=== PATIENT | female | born 1990 | race Caucasian/White ===

== ENCOUNTER 2019-06-02 08:57 | Inpatient (IN) | payer OTHER ==
[2019-06-02 09:52] LABS: ABSOLUTE EOSINOPHILS # (AUTO) 0.1 10^3/uL (0.0-0.6); ABSOLUTE LYMPHOCYTES (AUTO) 1.4 10^3/uL (0.5-4.7); ABSOLUTE MONOCYTES (AUTO) 0.7 10^3/uL (0.1-1.4); ABSOLUTE NEUT (AUTO) 5.2 10^3/uL (1.7-8.2); BASOPHILS % (AUTO) 0.1 % (0-2); HEMOGLOBIN 12.6 g/dL (12.0-15.5); LYMPHOCYTES % (AUTO) 19.1 % (13-45); MEAN CORPUSCULAR HEMOGLOBIN 30.2 pg (27.0-33.4); MEAN CORPUSCULAR VOLUME 86 fl (80-97); MONOCYTES % (AUTO) 8.9 % (3-13); PLATELET COUNT 154 10^3/uL (150-450); RED BLOOD COUNT 4.17 10^6/uL (3.72-5.28); RED CELL DISTRIBUTION WIDTH 14.4 % (11.5-14.0); SEGMENTED NEUTROPHILS % (AUTO) 70.9 % (42-78); TOTAL CELLS COUNTED % (AUTO) 100 %; WHITE BLOOD COUNT 7.3 10^3/uL (4.0-10.5)
[2019-06-02 09:52] LABS: APPEARANCE,URINE CLEAR; BILIRUBIN,URINE NEGATIVE (NEGATIVE); COLOR,URINE STRAW; GLUCOSE, URINE NEGATIVE (NEGATIVE); KETONES,URINE NEGATIVE (NEGATIVE); LEUKOCYTE ESTERASE,URINE TRACE (NEGATIVE); NITRITE,URINE NEGATIVE (NEGATIVE); PROTEIN,URINE NEGATIVE (NEGATIVE); URINE SPECIFIC GRAVITY 1.002; UROBILINOGEN,URINE NEGATIVE mg/dL (<2.0)
[2019-06-02 09:59] LABS: URINE AMPHETAMINES SCREEN NEGATIVE; URINE BARBITURATES SCREEN NEGATIVE; URINE BENZODIAZEPINES SCREEN NEGATIVE; URINE COCAINE SCREEN NEGATIVE; URINE MARIJUANA (THC) SCREEN NEGATIVE; URINE METHADONE SCREEN NEGATIVE; URINE PHENCYCLIDINE SCREEN NEGATIVE
[2019-06-02 10:13] LABS: ALBUMIN 3.4 g/dL (3.5-5.0); ALKALINE PHOSPHATASE 116 U/L (38-126); ANION GAP 6 (5-19); ASPARTATE AMINO TRANSFERASE 21 U/L (14-36); BILIRUBIN,TOTAL 0.3 mg/dL (0.2-1.3); BLOOD UREA NITROGEN 7 mg/dL (7-20); CALCIUM 9.3 mg/dL (8.4-10.2); CARBON DIOXIDE 21 mmol/L (22-30); CHLORIDE 109 mmol/L (98-107); GLUCOSE 81 mg/dL (75-110); POTASSIUM 3.8 mmol/L (3.6-5.0); TOTAL PROTEIN 6.2 g/dL (6.3-8.2)
[2019-06-02 10:15] LABS: UR PRO/CREAT RATIO RESULT 1.2 mg/mg (0.0-0.2); URINE CREATININE 13.5 mg/dL (16-327); URINE PROTEIN 15.9 mg/dL (<12)
--- NOTE | 2019-06-02 10:29 | Non Stress Test Report ---
Non Stress Test Datetime Report Generated by CPN: 06/02/2019 10:29 INDICATION Indication for Study (NST) Other: PIH workup VITAL SIGNS Temperature - NST: 98.1 Pulse - NST: 88 RESP - NST: 18 NBPSYS NST: 135 NBPDIA NST: 76 MONITORING Monitor Explained: Monitor Explained; Test Explained; Patient Verbalized Understanding Time on Monitor: 06/02/2019 09:16 Time off Monitor: 06/02/2019 10:28 NST Duration: 72 NST INTERVENTIONS NST Interventions: PO Hydration Physician Notified NST: Tigist Casarez CNM BABY A: [id number] Movement : Present Contraction Frequency : none FHR Baseline : 145 Accelerations : 15X15 Decelerations : None Variability : Moderate 6-25bpm NST Review: Meets Criteria for Reactive NST NST Review and Verified By : Joann Florez RN NST Results: Reactive NST REPORT Report Trigger: Send Report
[2019-06-02] MEDS ORDERED: DINOPROSTONE 10 MG VAGINAL INSERT.SR ONE (10:59)
[2019-06-02] MEDS ORDERED: MISOPROSTOL 0.2 MG TABLET ONE (10:59)
[2019-06-02] MEDS ORDERED: LIDOCAINE 1% INJ-PF (10 MG/ML) 30 ML SDV ONE (10:59)
[2019-06-02] MEDS ORDERED: OXYTOCIN/NORMAL SALINE 20 UNIT/1,000 ML RTUINJ ONE (10:59)
[2019-06-02] MEDS ORDERED: OXYTOCIN 10 UNIT/ML VIAL ONE (10:59)
[2019-06-02] MEDS ORDERED: DINOPROSTONE 10 MG VAGINAL INSERT.SR PV ONE (11:13)
[2019-06-02] MEDS ORDERED: RINGERS SOLUTION,LACTATED 1,000 ML IV PRN (11:13)
[2019-06-02] MEDS ORDERED: OXYTOCIN/NORMAL SALINE 20 UNIT/1,000 ML RTUINJ IV PRN (11:13)
[2019-06-02] MEDS ORDERED: MAG HYDROX/AL HYDROX/SIMETH SUSP 30 ML UDCUP PO PRN (11:13)
[2019-06-02] MEDS ORDERED: ZOLPIDEM TARTRATE 5 MG TABLET PO PRN (11:13)
[2019-06-02] MEDS ORDERED: RINGERS SOLUTION,LACTATED 300 ML IV ONE (11:13)
[2019-06-02] MEDS ORDERED: ACETAMINOPHEN 325 MG TABLET PO PRN (11:13)
[2019-06-02] MEDS: RINGERS SOLUTION,LACTATED 1,000 ML IV PRN ×2 (11:27→20:11)
--- NOTE | 2019-06-02 14:28 | Admission Physical ---
Datetime Report Generated by CPN: 06/02/2019 14:28 CURRENT ADMISSION Chief Complaint: Signs/Symptoms Gestational HTN; Sent from OB Office for Evaluation and Treatment - Please Specify Indication for Induction: PreEclampsia Indication for Induction- Other: Pr/Cr ratio 1.2 Admit Impression : Term, Intrauterine Admit Plan: Admit to Unit; Initiate Labor Induction Protocol Admit Plan- Other: GBS neg has Hx of White coat syndrome, vs CHTN had severe range bp in office last week BP 159/101, 150/109 at A today ALLERGIES Medication Allergies: No Medication Allergies: No Known Allergies (06/02/2019) Latex: No Latex Allergies Food Allergies: none Environmental Allergies: none OBSTETRICAL HISTORY : 1 Para: 0 Term: 0 : 0 SAB: 0 IAB: 0 Ectopic: 0 Livin Cesareans: 0 VBACs: 0 Multiple Births: 0 Gestational Diabetes: No Rh Sensitization: No Incompetent Cervix: No ANA PAULA: No Infertility: No ART Treatment: No Uterine Anomaly: No IUGR: No Hx Previous C/S: No Macrosomia: No Hx Loss/Stillborn: No PIH: Yes Hx : No Placenta Previa/Abruption: No Depression/PP Depression: No PTL/PROM: No Post Hemorrhage: No Current Procedures: Ultrasound Obstetrical History Comments: G1-current SEE RECORDS Alcohol: No Marijuana : No Cocaine: No Other Illicit Drugs: No Cigarettes: Never Smoker. 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 Heart Disease: No Hosp/Surgery: No Autoimmune Disorder: No Anesthetic Complications: No Kidney Disease: No Abnormal Pap Smear: No Neuro/Epilepsy: No Psychiatric Disorders: No Other Medical Diseases: No Hepatitis/Liver Disease: No Significant Family History: No Varicosities/Phlebitis: No Trauma/Violence : No Thyroid Dysfunction: No Medical History Comments: white coat syndrome hypertension INFECTIOUS HISTORY Gonorrhea: No Genital Herpes: No Chlamydia: No Tuberculosis: No Syphilis: No Hepatitis: No HIV/AIDS Exposure: No Rash or Viral Illness: No HPV: Yes PHYSICAL EXAM General: Normal HEENT: Deferred Neurologic: Normal Thyroid: Deferred Heart: Normal Lungs: Normal Breast: Deferred Back: Deferred Abdomen: Normal Genitourinary Exam: Normal Extremities: Normal DTRs: Abnormal Pelvic Type: Adequate Physical Exam Comments: Brisk DTRs, no clonus Vital Signs: Reviewed VAGINAL EXAM Dilatation: 2 Effacement: 60 Station: -2 MEMBRANES Membranes: Intact FETUS A Monitoring: External US Variability: Moderate 6-25bpm Accelerations: 15X15 Decelerations: None Presentation: Vertex Admit Comment: Admit for IOL for pre-E POC discussed with Dr. Riaz Jeffers induction PLANS FOR LABOR AND DELIVERY Labor and Delivery: None Pain Management: Epidural Feeding Preference: Breast Benefit of Breast Feed Discussed: Yes Circumcision: N/A INFORMED CONSENT Assignment: Chidi Mello MD Signature: with User ID: Prince : with User ID: Prince
[2019-06-03] MEDS ORDERED: DINOPROSTONE 10 MG VAGINAL INSERT.SR PV ONE (00:30)
[2019-06-03] MEDS ORDERED: DINOPROSTONE 10 MG VAGINAL INSERT.SR ONE (01:08)
[2019-06-03] MEDS: RINGERS SOLUTION,LACTATED 1,000 ML IV PRN (03:28)
[2019-06-03] MEDS ORDERED: FENTANYL/BUPIVACAINE/NS/PF 300 MCG/150 ML RTUINJ EPI ONE (15:00)
[2019-06-03] MEDS ORDERED: PHENYLEPHRINE HCL INJ/PF 10 MG/1 ML SDV ONE (15:00)
[2019-06-03] MEDS ORDERED: EPHEDRINE SULFATE INJ 50 MG/1 ML AMPULE ONE (15:00)
[2019-06-03] MEDS ORDERED: FENTANYL CITRATE INJ/PF 100 MCG/2 ML AMPUL ONE (15:00)
[2019-06-03] MEDS ORDERED: BUPIVACAINE HCL 0.25 % INJ/PF (2.5 MG/1 ML) 30 ML VIAL ONE (15:00)
[2019-06-03 15:16] LABS: ABSOLUTE EOSINOPHILS # (AUTO) 0.1 10^3/uL (0.0-0.6); ABSOLUTE LYMPHOCYTES (AUTO) 1.5 10^3/uL (0.5-4.7); ABSOLUTE MONOCYTES (AUTO) 0.9 10^3/uL (0.1-1.4); BASOPHILS % (AUTO) 0.2 % (0-2); EOSINOPHILS % (AUTO) 0.6 % (0-6); HEMATOCRIT 37.3 % (36.0-47.0); HEMOGLOBIN 13.2 g/dL (12.0-15.5); MEAN CORPUSCULAR HEMOGLOBIN 30.1 pg (27.0-33.4); MEAN CORPUSCULAR HGB CONC 35.2 g/dL (32.0-36.0); MEAN CORPUSCULAR VOLUME 86 fl (80-97); MONOCYTES % (AUTO) 10.3 % (3-13); PLATELET COUNT 168 10^3/uL (150-450); RED BLOOD COUNT 4.37 10^6/uL (3.72-5.28); RED CELL DISTRIBUTION WIDTH 14.5 % (11.5-14.0); SEGMENTED NEUTROPHILS % (AUTO) 70.9 % (42-78); TOTAL CELLS COUNTED % (AUTO) 100 %; WHITE BLOOD COUNT 8.5 10^3/uL (4.0-10.5)
[2019-06-03] MEDS ORDERED: ACETAMINOPHEN 325 MG TABLET ONE (19:56)
[2019-06-03] MEDS ORDERED: AMPICILLIN SOD/SULBACTAM 3 GM VIAL ONE (19:56)
[2019-06-03] MEDS ORDERED: ACETAMINOPHEN 325 MG TABLET PO PRN (20:15)
[2019-06-03] MEDS ORDERED: OXYTOCIN/NORMAL SALINE 20 UNIT/1,000 ML RTUINJ IV PRN (20:15)
[2019-06-03] MEDS ORDERED: BENZOCAINE/MENTHOL AEROSOL SPRAY 56 ML TOP PRN (20:15)
[2019-06-03] MEDS ORDERED: PSEUDOEPHEDRINE HCL 30 MG TABLET PO PRN (20:15)
[2019-06-03] MEDS ORDERED: MAGNESIUM HYDROXIDE SUSP 30 ML UDCUP PO PRN (20:15)
[2019-06-03] MEDS ORDERED: MEASLES,MUMPS&RUBELLA VACC/PF 0.5 ML VIAL SUBCUT PRN (20:15)
[2019-06-03] MEDS ORDERED: PROMETHAZINE HCL 25 MG TABLET PO PRN (20:15)
[2019-06-03] MEDS ORDERED: PROMETHAZINE HCL 25 MG SUPP.RECT PR PRN (20:15)
[2019-06-03] MEDS ORDERED: DIPHENHYDRAMINE HCL 25 MG CAPSULE PO PRN (20:15)
[2019-06-03] MEDS ORDERED: DIBUCAINE 1% OINTMENT 28 GM TP PRN (20:15)
[2019-06-03] MEDS ORDERED: ACETAMINOPHEN 650 MG SUPP.RECT PR PRN (20:15)
[2019-06-03] MEDS ORDERED: ZOLPIDEM TARTRATE 5 MG TABLET PO PRN (20:15)
[2019-06-03] MEDS ORDERED: DIPH/PERTUSS(ACELL)/TETANUS VAC/PF 0.5 ML SYR (>=10YO) IM PRN (20:15)
[2019-06-03] MEDS ORDERED: GLYCERIN/WITCH HAZEL LEAF 1 EACH MED..WIPE TP PRN (20:15)
[2019-06-03] MEDS ORDERED: NA PHOS,M-B/NA PHOS,DI-BA (ADULT) 133 ML ENEMA PR PRN (20:15)
[2019-06-03] MEDS ORDERED: ACETAMINOPHEN WITH CODEINE #3 TABLET PO PRN ×2 (20:15)
[2019-06-03] MEDS ORDERED: PROMETHAZINE HCL INJ 25 MG/1 ML VIAL IV PRN (20:15)
[2019-06-03] MEDS ORDERED: ACETAMINOPHEN 325 MG TABLET PO ONE (20:17)
[2019-06-03] MEDS ORDERED: AMPICILLIN SOD/SULBACTAM 3 GM VIAL IV SCH (20:30)
--- NOTE | 2019-06-03 20:59 | Warning Signs in Babies ---
VOD Warning Signs Datetime Report Generated by [facility]: 06/03/2019 20:59 VOD#[id number] -Warning Signs in Babies: Needs to be viewed. (06/02/2019 09:07:Lanie Arriaga RN)
--- NOTE | 2019-06-03 21:41 | Delivery Summary ---
Del Sum A-C Datetime Report Generated by CPN: 06/03/2019 21:41 DELIVERY PERSONNEL DELIVERY PERSONNEL: [id number] Delivery Doctor:: Victorina Garcia MD Labor and Delivery Nurse:: Patt Florez RN Vamper:: KEYANA Wills Spanish Instructor/ELECTRONIC PAGE MAKEUP SYSTEM OPERATOR: Cely Ying, MANAGER HRIS MATERNAL INFORMATION Delivery Anesthesia: Epidural Medications After Delivery: Pitocin Drip 20 Units/1000ml NSS Meds After Delivery Comment: 20 units pitocin after placenta delivery Estimated Blood Loss (ml): 200 Maternal Complications: Other Complication Details: pre-e LABOR SUMMARY EDC: 06/17/2019 00:00 No. Babies in Womb: 1 Attempted: No Labor Anesthesia: Epidural LABOR INFORMATION Reason for Induction: Pre-Eclampsia Onset of Labor: 06/03/2019 16:50 Complete Dilatation: 06/03/2019 19:24 Cervical Ripening Agents: Cervidil Oxytocin: Induction Group B Beta Strep: negative Antibiotics # of Doses: 0 Antibiotics Time of Last Dose: 0 Name of Antibiotic Given: 0 Steroids Given: None Reason Steroids Not Administered: Not Applicable MEMBRANES Membranes Rupture Method: Artificial Rupture of Membranes: 06/03/2019 16:50 Length of Rupture (hr): 3.02 Amniotic Fluid Color: Clear Amniotic Fluid Amount: None Amniotic Fluid Odor: None STAGES OF LABOR Stage 1 hr: 2 Stage 1 min: 34 Stage 2 hr: 0 Stage 2 min: 27 Stage 3 hr: 0 Stage 3 min: 3 Total Time in Labor hr: 3 Total Time in Labor min: 4 VAGINAL DELIVERY Episiotomy: None Laceration #1: Vaginal Laceration Extension #1: First Degree Laceration Repair: Yes Laceration Repair Note: 2-0 chromic in normal fashion Sponge Count Correct: Yes Sharps Count Correct: Yes CSECTION DELIVERY Primary Indication: N/A Secondary Indication: N/A CSection Urgency: N/A CSection Incidence: N/A Labor: N/A Elective: N/A CSection Incision: N/A BABY A INFORMATION Delivery Date/Time: 06/03/2019 19:51 Method of Delivery: Vaginal Nurse Controlled Delivery: No Born in Route : No : N/A Forceps: N/A Vacuum Extraction: Successful Shoulder Dystocia : No ASSISTED DELIVERY BABY A Indication for Assisted Delivery: maternal effort /control Catheter Prior to Procedure: Yes Station Vacuum/Forcep Apply: Position Vacuum/Forcep Apply: Left Occipital Anterior Vacuum Number of Pulls: 1 Vacuum Number of PopOffs: 0 Vacuum Maximum Pressure Obtained: 550 Reduce Pressure btwn Ctx: Yes Vacuum Electrification Adviser: kiwi Total Time Vacuum Applied: 1 PRESENTATION/POSITION BABY A Presentation: Cephalic Cephalic Presentation: Vertex Vertex Position: Left Occipital Anterior Breech Presentation: N/A PLACENTA INFORMATION BABY A Placenta Delivery Time : 06/03/2019 19:54 Placenta Method of Delivery: Spontaneous Placenta Status: Delivered SCORES BABY A Heart Rate 1 min: >100 bpm Resp Effort 1 min: Good Cry Reflex Irritability 1 min: Cough or Sneeze or Pulls Away Muscle Tone 1 min: Active Motion Color 1 min: Blue/Pale Resuscitation Effort 1 min: Tactile Stimulation SCORE 1 MIN: 8 Heart Rate 5 min: >100 bpm Resp Effort 5 min: Good Cry Reflex Irritability 5 min: Cough or Sneeze or Pulls Away Muscle Tone 5 min: Active Motion Color 5 min: Body [place], Extremities Blue Resuscitation Effort 5 min: Tactile Stimulation SCORE 5 MIN: 9 INFORMATION BABY A Gestational Age at Delivery: 38.0 Gestational Status: Early Term- 37- 38.6 Weeks Infant Outcome : Liveborn Condition : Stable Infant Sex: Female IDENTIFICATION BABY A Verification Date/Time: 06/03/2019 20:38 ID Band Number: [id number] Mother's Name Verified: Yes Infant RN Verifying Infant: D Paxton RN/M Florencio RN WEIGHT/LENGTH BABY A Birthweight (gm): 2797 Infant Weight (lb): 6 Weight (oz): 3 Infant Length (in): 19.50 Infant Length (cm): 49.53 CORD INFORMATION BABY A No. Cord Vessels: 3 Nuchal Cord : N/A Cord Blood Taken: Yes-For Storage (Mom's Blood type +) Infant Suction: Mouth; Nose ASSESSMENT BABY A Complications: None Physical Findings at Delivery: Molding of the Head Infant Respirations: Appears Normal Skin to Skin: Yes Skin to Skin Time (min): 60 Trial Consultant/ALS Called : No Infant Care By: Yosi Matias RN Transferred To: Remains with Mother BABY B INFORMATION : N/A SIGNATURES Signature: with User ID: [email or web address] : I was personally available for consultation and serving as supervising physician for the MLP.
[2019-06-03] MEDS: IBUPROFEN 800 MG TABLET PO SCH (23:25)
[2019-06-03] MEDS: FAMOTIDINE 20 MG TABLET PO SCH (23:25)
[2019-06-04] MEDS ORDERED: AMPICILLIN SODIUM/SULBACTAM NA 3 GM in NORMAL SALINE 100 ML IV SCH (04:00)
[2019-06-04] MEDS: IBUPROFEN 800 MG TABLET PO SCH ×3 (06:13→21:51)
[2019-06-04 07:22] LABS: HEMATOCRIT 32.7 % (36.0-47.0); HEMOGLOBIN 11.5 g/dL (12.0-15.5); MEAN CORPUSCULAR HEMOGLOBIN 30.4 pg (27.0-33.4); MEAN CORPUSCULAR HGB CONC 35.3 g/dL (32.0-36.0); MEAN CORPUSCULAR VOLUME 86 fl (80-97); PLATELET COUNT 151 10^3/uL (150-450); RED BLOOD COUNT 3.79 10^6/uL (3.72-5.28); RED CELL DISTRIBUTION WIDTH 14.2 % (11.5-14.0)
[2019-06-04] MEDS: DOCUSATE SODIUM 100 MG CAPSULE PO SCH ×2 (09:45→17:55)
[2019-06-04] MEDS: SENNOSIDES/DOCUSATE 8.6-50 MG 1 EACH TABLET PO SCH (09:45)
[2019-06-04] MEDS: PRENATAL VITAMIN W DHA CAPSULE PO SCH (09:45)
[2019-06-04] MEDS: FAMOTIDINE 20 MG TABLET PO SCH ×2 (09:45→21:51)
[2019-06-04] MEDS: FERROUS SULFATE 325 MG TABLET PO SCH ×2 (09:45→17:55)
--- NOTE | 2019-06-04 11:04 | PDOC PROGRESS REPORT ---
Subjective-OB Progress Note for:: 06/04/19 Subjective: 28yo G1 now P1 s/p vacuum assisted vaginal delivery ppd1. Pt. ambulating and voiding without difficulty. Denies any concerns Physical Exam (OB) Vital Signs: Temp Pulse Resp BP Pulse Ox 97.6 F 82 16 122/84 99 06/04/19 07:47 06/04/19 07:47 06/04/19 07:47 06/04/19 07:47 06/04/19 07:47 Intake & Output 06/03/19 06/04/19 06/05/19 06:59 06:59 06:59 Intake Total 1910 100 Output Total 350 Balance 1910 -250 Weight 88.1 kg - General General Appearance: Appears well In distress: None - PIH/Pre-Eclampsia DTR's: 1 + Clonus: Negative Headache: Absent Epigastric Pain: No Visual Changes: No - Episiotomy/Laceration Site Condition: Well Approximated - Lochia Lochia Amount: Moderate 25-50 ml Lochia Color: Rubra/Red - Abdomen Description: Soft Hernia Present: No Fundal Description: Firm, Midline Fundal Height: u/u - u/2 - Respiratory Respiratory Status: No respiratory distress - Extremities Upper extremity: Normal inspection Lower extremities: Normal inspection - Neurological Cognition: Normal Orientation: AAOx4 - Psychological Associated symptoms: Normal affect, Normal mood Objective-Diagnostic Laboratory: 06/04/19 07:04 06/02/19 09:43 06/03/19 06/04/19 15:08 07:04 WBC 8.5 10.0 RBC 4.37 3.79 Hgb 13.2 11.5 L Hct 37.3 32.7 L MCV 86 86 MCH 30.1 30.4 MCHC 35.2 35.3 RDW 14.5 H 14.2 H Plt Count 168 151 Seg Neutrophils % 70.9 Assessment and Plan(PN) - Assessment and Plan (1) Vacuum-assisted vaginal delivery Is this a current diagnosis for this admission?: Yes Plan: Routine pp care,continue to monitor for s/s of infection (2) Pre-eclampsia in third trimester Is this a current diagnosis for this admission?: Yes Plan: continue to monitor for s/s of pre-e (3) Obstetric vaginal laceration Qualifiers: Perineal laceration presence: without perineal laceration Qualified Code(s): O71.4 - Obstetric high vaginal laceration alone Is this a current diagnosis for this admission?: Yes Plan: continue to monitor for s/s of infection - Time Spent with Patient Time with patient: Less than 15 minutes Medications reviewed and adjusted accordingly: Yes - Disposition Anticipated Discharge: Home Within: within 24 hours
[2019-06-05] MEDS: IBUPROFEN 800 MG TABLET PO SCH ×2 (05:19→13:48)
[2019-06-05] MEDS: PRENATAL VITAMIN W DHA CAPSULE PO SCH (10:20)
[2019-06-05] MEDS: SENNOSIDES/DOCUSATE 8.6-50 MG 1 EACH TABLET PO SCH (10:20)
[2019-06-05] MEDS: FERROUS SULFATE 325 MG TABLET PO SCH ×2 (10:20→17:59)
[2019-06-05] MEDS: DOCUSATE SODIUM 100 MG CAPSULE PO SCH ×2 (10:20→17:59)
[2019-06-05] MEDS: FAMOTIDINE 20 MG TABLET PO SCH (10:20)
--- NOTE | 2019-06-05 10:29 | PDOC DISCHARGE SUMMARY ---
Impression - Admit/DC Date/PCP Admission Date/Primary Care Provider: 06/02/19 11:14 Discharge Date: 06/05/19 - Discharge Diagnosis (1) Obstetric vaginal laceration Is this a current diagnosis for this admission?: Yes (2) Pre-eclampsia in third trimester Is this a current diagnosis for this admission?: Yes (3) Vacuum-assisted vaginal delivery Is this a current diagnosis for this admission?: Yes - Additional Information Discharge Diet: Regular Discharge Activity: Balance Activity w/Rest, Pelvic Rest Prescriptions: Ibuprofen [Motrin 800 mg Tablet] 800 mg PO Q8HP PRN #60 tablet PRN Reason: No122/Iron/Folic Acid [ Multi Tablet] 1 tab PO DAILY #90 Home Medications: Ibuprofen [Motrin 800 mg Tablet] 800 mg PO Q8HP PRN #60 tablet 06/05/19 No122/Iron/Folic Acid [ Multi Tablet] 1 tab PO DAILY #90 06/05/19 Results Laboratory Results: WBC 10.0 10^3/uL (4.0-10.5) 06/04/19 07:04 RBC 3.79 10^6/uL (3.72-5.28) 06/04/19 07:04 Hgb 11.5 g/dL (12.0-15.5) L 06/04/19 07:04 Hct 32.7 % (36.0-47.0) L 06/04/19 07:04 MCV 86 fl (80-97) 06/04/19 07:04 MCH 30.4 pg (27.0-33.4) 06/04/19 07:04 MCHC 35.3 g/dL (32.0-36.0) 06/04/19 07:04 RDW 14.2 % (11.5-14.0) H 06/04/19 07:04 Plt Count 151 10^3/uL (150-450) 06/04/19 07:04 Lymph % (Auto) 18.0 % (13-45) 06/03/19 15:08 [place] % (Auto) 10.3 % (3-13) 06/03/19 15:08 Eos % (Auto) 0.6 % (0-6) 06/03/19 15:08 Baso % (Auto) 0.2 % (0-2) 06/03/19 15:08 Absolute Neuts (auto) 6.0 10^3/uL (1.7-8.2) 06/03/19 15:08 Absolute Lymphs (auto) 1.5 10^3/uL (0.5-4.7) 06/03/19 15:08 Absolute Monos (auto) 0.9 10^3/uL (0.1-1.4) 06/03/19 15:08 Absolute Eos (auto) 0.1 10^3/uL (0.0-0.6) 06/03/19 15:08 Absolute Basos (auto) 0.0 10^3/uL (0.0-0.2) 06/03/19 15:08 Seg Neutrophils % 70.9 % (42-78) 06/03/19 15:08 Sodium 136.1 mmol/L (137-145) L 06/02/19 09:43 Potassium 3.8 mmol/L (3.6-5.0) 06/02/19 09:43 Chloride 109 mmol/L (98-107) H 06/02/19 09:43 Carbon Dioxide 21 mmol/L (22-30) L 06/02/19 09:43 Anion Gap 6 (5-19) 06/02/19 09:43 BUN 7 mg/dL (7-20) 06/02/19 09:43 Creatinine 0.48 mg/dL (0.52-1.25) L 06/02/19 09:43 Est GFR ( Amer) > 60 (>60) 06/02/19 09:43 Est GFR (MDRD) Non-Af > 60 (>60) 06/02/19 09:43 Glucose 81 mg/dL (75-110) 06/02/19 09:43 Uric Acid 4.0 mg/dL (2.5-6.2) 06/02/19 09:43 Calcium 9.3 mg/dL (8.4-10.2) 06/02/19 09:43 Total Bilirubin 0.3 mg/dL (0.2-1.3) 06/02/19 09:43 Direct Bilirubin 0.0 mg/dL (0.0-0.4) 06/02/19 09:43 Neonat Total Bilirubin Not Reportable 06/02/19 09:43 Neonat Direct Bilirubin Not Reportable 06/02/19 09:43 Neonat Indirect Bili Not Reportable 06/02/19 09:43 AST 21 U/L (14-36) 06/02/19 09:43 ALT 17 U/L (<35) 06/02/19 09:43 Alkaline Phosphatase 116 U/L (38-126) 06/02/19 09:43 Lactate Dehydrogenase 152 U/L (120-246) 06/02/19 09:43 Total Protein 6.2 g/dL (6.3-8.2) L 06/02/19 09:43 Albumin 3.4 g/dL (3.5-5.0) L 06/02/19 09:43 Urine Color STRAW 06/02/19 09:26 Urine Appearance CLEAR 06/02/19 09:26 Urine pH 7.0 (5.0-9.0) 06/02/19 09:26 Ur Specific [place] 1.002 06/02/19 09:26 Urine Protein NEGATIVE mg/dL (NEGATIVE) 06/02/19 09:26 Urine Glucose (UA) NEGATIVE mg/dL (NEGATIVE) 06/02/19 09:26 Urine Ketones NEGATIVE mg/dL (NEGATIVE) 06/02/19 09:26 Urine Blood NEGATIVE (NEGATIVE) 06/02/19 09:26 Urine Nitrite NEGATIVE (NEGATIVE) 06/02/19 09:26 Urine Bilirubin NEGATIVE (NEGATIVE) 06/02/19 09:26 Urine Urobilinogen NEGATIVE mg/dL (<2.0) 06/02/19 09:26 Ur Leukocyte Esterase TRACE (NEGATIVE) H 06/02/19 09:26 Urine WBC (Auto) 3 /HPF 06/02/19 09:26 Urine RBC (Auto) 1 /HPF 06/02/19 09:26 Urine Bacteria (Auto) 3+ /HPF 06/02/19 09:26 Squamous Epi Cells Auto 1 /HPF 06/02/19 09:26 Urine Creatinine 13.5 mg/dL (16-327) L 06/02/19 09:26 Protein/Creatinin Ratio 1.2 mg/mg (0.0-0.2) H 06/02/19 09:26 Urine Total Protein 15.9 mg/dL (<12) H 06/02/19 09:26 Urine Ascorbic Acid NEGATIVE (NEGATIVE) 06/02/19 09:26 Urine Opiates Screen NEGATIVE 06/02/19 09:26 Urine Methadone Screen NEGATIVE 06/02/19 09:26 Ur Barbiturates Screen NEGATIVE 06/02/19 09:26 Ur Phencyclidine Scrn NEGATIVE 06/02/19 09:26 Ur Amphetamines Screen NEGATIVE 06/02/19 09:26 U Benzodiazepines Scrn NEGATIVE 06/02/19 09:26 Urine Cocaine Screen NEGATIVE 06/02/19 09:26 U Marijuana (THC) Screen NEGATIVE 06/02/19 09:26 RPR NONREACTIVE (NONREACTIVE) 06/02/19 11:46 Blood Type AB POSITIVE 06/02/19 11:46 Antibody Screen NEGATIVE 06/02/19 11:46 Plan Plan of Treatment: follow up in one week at [facility] for BP check
[2019-06-05 15:07] VITALS: BP 144/80
== END 2019-06-05 17:37 | disposition home or self-care (01) | DRG 807 ==
LOC: LC 08:57 → LR 11:14 → 2S 06-03 22:27
PROVIDERS: ADMIT Obstetrics & Gynecology; ATTEND Obstetrics & Gynecology
PROC: 10D07Z6 Extraction of Products of Conception, Vacuum, Via Natural or Artificial Opening (ICD-10-PCS; principal; 2019-06-02)
DX: O14.94 Unspecified pre-eclampsia, complicating childbirth (principal); Z37.0 Single live birth; O70.0 First degree perineal laceration during delivery; O75.81 Maternal exhaustion complicating labor and delivery; Z3A.38 38 weeks gestation of pregnancy
CPT/HCPCS: 36415; 80053; 80307; 81001; 82570; 83615; 84156; 84550; 85025; 85027; 86592; 86850; 86900; 86901; J0295; J2370; J2590; J3010; J3490; J7050